=== PATIENT | male | born 1990 | race African-American/Black ===

== ENCOUNTER 2018-07-31 17:27 | Emergency (ER) | payer OTHER ==
[~2018-07-31] VITALS: Ht 172.7 cm; Wt 77.1 kg
[2018-07-31 17:30] VITALS: BP 111/62
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
[2018-07-31] MEDS ORDERED: Bacitracin Oint UD TOPIC ONE ×2 (17:32→17:45)
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
[2018-07-31] MEDS ORDERED: BACITRACIN ZIN1 EACH TOPIC (18:19)
[2018-07-31 18:50] VITALS: BP 105/67
--- NOTE | 2018-07-31 18:51 | NUR ---
ER DISCHARGE NOTE: Patient is cleared to be discharged per ERMD, pt is aox4, on room air, with stable vital signs. pt was given dc and prescription instructions, pt was able to verbalize understanding, pt id band removed without complications. pt is able to ambulate with steady gait. pt took all belongings. Patient was given the OK to book.
--- NOTE | 2018-08-01 10:04 | Diagnostic Imaging Report ---
Indication: Abdominal pain Technique: Continuous helical transaxial imaging of the abdomen and pelvis was obtained from the lung bases to the pubic symphysis. No intravenous contrast was administered. Coronal 2-D reformats were also obtained. Automatic Exposure Control was utilized. Total Dose length Product (DLP): [address] Dose Index Volume (CTDIvol): 12.54 mGy Comparison: none Findings: The lung bases are clear. There is a moderate gastric distention filled with the ingested material presumably food. Gallbladder is contracted. Bowel bowel gas pattern is nonobstructive but that there is fecal-like contents are within nondistended small bowel loops and moderate stool within the colon. Appendix is normal. There is no free fluid. Bladder is unremarkable. No nephrolithiasis identified. IMPRESSION: Constipation and fecalized small bowel likely indicative of small bowel stasis. Correlate clinically. Negative exam otherwise. [facility] has communicated the preliminary results to the Emergency Department. Their findings are largely concordant with this report. The CT scanner at [facility] is accredited by the [employer] and the scans are performed using dose optimization techniques as appropriate to a performed exam including Automatic Exposure control.
== END 2018-07-31 19:21 ==
LOC: EDBD 17:27 → EMR 18:05
DX: S31.139A Puncture wound of abdominal wall without foreign body, unspecified quadrant without penetration into peritoneal cavity, initial encounter (principal); S01.81XA Laceration without foreign body of other part of head, initial encounter; S00.93XA Contusion of unspecified part of head, initial encounter; Y35.491A Legal intervention involving other sharp objects, law enforcement official injured, initial encounter; Y92.9 Unspecified place or not applicable
CPT/HCPCS: 74176; 99284